=== PATIENT | female | born 2000 | race African-American/Black ===

== ENCOUNTER 2023-03-14 10:10 | Emergency (ER) | payer BC ==
[2023-03-14 10:23] VITALS: BP 132/61; PULSE 82; RESP 18; TEMP 98.7; BMI 30.9
== END 2023-03-14 10:59 | disposition home or self-care (01) ==
LOC: JER 10:10 → JERFT 10:10
DX: H92.03 Otalgia, bilateral (principal); H60.93 Unspecified otitis externa, bilateral
CPT/HCPCS: 99283-25